=== PATIENT | male | born 1965 | race Caucasian/White ===

== ENCOUNTER → 2017-02-01 | Outpatient (CLI) | payer BC ==
[~2017-02-01] MED LIST: VSNOPS OPB
== END | disposition home or self-care (01) ==
LOC: C.PATHSPEC 13:30
PROVIDERS: ATTEND Dentist General Practice
DX: L57.0 Actinic keratosis (principal)

== ENCOUNTER → 2017-02-11 | Outpatient (CLI) | payer BC ==
--- NOTE | 2017-02-11 11:05 | DIAGNOSTIC IMAGING REPORT ---
CHEST 2 VIEWS ROUTINE CLINICAL HISTORY: PNEUMONIA dyspnea COMPARISON STUDY: 08/13/2014 FINDINGS: The bones soft tissues and hemidiaphragms are normal. The cardiomediastinal silhouette is normal. The lungs are clear. The pulmonary vasculature is normal. IMPRESSION: Negative chest. Electronically signed by: Donnie Fajardo M.D. 02/11/2017 11:03 AM Dictated Date/Time: 02/11/2017 11:03 AM
== END | disposition home or self-care (01) ==
LOC: C.RAD1850 10:49
PROVIDERS: ATTEND Family Medicine
DX: J18.9 Pneumonia, unspecified organism (principal)

== ENCOUNTER 2017-03-13 18:26 | Emergency (ER) | payer BC ==
[~2017-03-13] VITALS: Ht 182.9 cm; Wt 154.0 kg
[2017-03-13 18:39] VITALS: TEMP 36.8; Ht 182.9 cm; Wt 154.0 kg
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
[2017-03-13] MEDS ORDERED: HALOPERIDOL LACTATE 5 MG/ML 1 ML VIAL IM STA (19:05)
[2017-03-13] MEDS ORDERED: LORAZEPAM 2 MG/ML 1 ML VIAL IM STA (19:05)
[2017-03-13 20:32] LABS: HEMATOCRIT 44.9 % (42-52); MEAN CELL VOLUME 85.9 fL (80-100); MEAN CORPUSCULAR HEMOGLOBIN 29.1 pg (25-34); MEAN CORPUSCULAR HGB CONC 33.9 g/dl (32-36); PLATELET COUNT 186 K/uL (130-400); RED BLOOD COUNT 5.23 M/uL (4.7-6.1); WHITE BLOOD COUNT 12.82 K/uL (4.8-10.8)
[2017-03-13 20:58] LABS: BUN/CREATININE RATIO 8.8 (10-20); CREATININE 0.86 mg/dl (0.60-1.40)
[2017-03-13 21:55] LABS: CALCIUM 8.7 mg/dl (8.5-10.1)
[2017-03-14 00:25] VITALS: BP 115/65; PULSE 100; O2SAT 97
== END 2017-03-14 00:25 | disposition home or self-care (01) ==
LOC: EDBD 18:26 → C.EDB 18:27
DX: F10.129 Alcohol abuse with intoxication, unspecified (principal); F17.200 Nicotine dependence, unspecified, uncomplicated; Z90.49 Acquired absence of other specified parts of digestive tract; Z80.9 Family history of malignant neoplasm, unspecified; Z82.49 Family history of ischemic heart disease and other diseases of the circulatory system

== ENCOUNTER → 2017-10-24 | Outpatient (CLI) | payer BC ==
--- NOTE | 2017-10-24 14:50 | DIAGNOSTIC IMAGING REPORT ---
CT LUNG SCREENING, LOW DOSE WITH COMPUTER-AIDED DETECTION (CAD) CLINICAL HISTORY: Smoking history. Lung cancer screening. COMPARISON STUDY: Screening chest CT dated 10/09/2016. CT DOSE: 79.39 mGycm TECHNIQUE: Low-dose helical CT was acquired without intravenous contrast from lung apices to bases and reconstructed at 2.5 mm every 2 mm. CAD was utilized for this study. A dose lowering technique was utilized adhering to the principles of ALARA. FINDINGS: Thyroid: Imaged portions of the thyroid gland are normal in appearance. Thoracic aorta: The thoracic aorta is normal in course and caliber, noting standard 3 vessel arch anatomy. Heart: The heart is top normal in size and without pericardial effusion. Lungs and pleural spaces: Mild emphysematous change is present with an upper lobe predominance. No airspace consolidation or pleural effusion is identified. There are foci of bibasilar scarring versus atelectasis. The trachea and central airways are patent. No concerning pulmonary lesion is seen. A tiny calcified granuloma seen in the left lower lobe. Mediastinum: Not well evaluated due to streak artifact. No obvious adenopathy is seen. Yvette: Not well assessed. Axilla: Clear. Upper abdomen: There've abdominal viscera is not well visualized due to extensive streak artifact. Skeletal structures: Degenerative changes noted throughout the spine. No lytic or blastic lesions are identified. IMPRESSION: 1. Emphysema. 2. No airspace consolidation or pleural effusion is identified. 3. No concerning pulmonary lesion is seen. CAD FINDINGS: Overall Lung RADS Category: 1 Lung RADS Management Recommendation: Continue annual lung cancer screening. Lung RADS Follow Up Date: 2018-10-24 Lung RADS Nodule ID: Electronically signed by: Alexandro Mary M.D. 10/24/2017 2:48 PM Dictated Date/Time: 10/24/2017 2:40 PM
== END | disposition home or self-care (01) ==
LOC: C.CTS 14:20
PROVIDERS: ATTEND Family Medicine
DX: F17.200 Nicotine dependence, unspecified, uncomplicated (principal)

== ENCOUNTER → 2017-12-05 | Outpatient (CLI) | payer BC, OTHER ==
--- NOTE | 2017-12-08 13:52 | PULMONARY FUNCTION TEST ---
Spirometry is within the limits of normal. Repeat study done following bronchodilators showed significant improvement in small airways function only. Advised clinical correlation.
== END | disposition home or self-care (01) ==
LOC: C.RC 13:38
PROVIDERS: ATTEND Family Medicine
DX: F17.200 Nicotine dependence, unspecified, uncomplicated (principal)